=== PATIENT | male | born 1975 | race Caucasian/White ===

== ENCOUNTER → 2021-02-06 | Outpatient (CLI) | payer OTHER | LOC: HEART CORB 12:52 | DX: R07.2 Precordial pain (principal) ==

== ENCOUNTER → 2021-02-23 | Outpatient (CLI) | payer OTHER | LOC: HEART CORB 09:04 | DX: I47.2 Ventricular tachycardia (principal); I34.0 Nonrheumatic mitral (valve) insufficiency | CPT/HCPCS: 93306 ==